=== PATIENT | male | born 1970 | race Caucasian/White ===

== ENCOUNTER → 2020-08-21 | Outpatient (CLI) | payer MEDICARE, MEDICAID ==
[~2020-08-21] MED LIST: COUM1TAB19 PO; EPIP0.3I2 IJ; FERR325T81 PO; GLUC1CAP10 PO; K-TA10TA2 PO; LATA0.0013 OU; LEVE250T5 PO; LOSA25TA14 PO; MM S100C PO; OMEP-218 PO; PRED20TA PO; SERT50TA29 PO; SYMB80INH INH; TRIA37.5 PO; TRIA37.53 PO; VENTAER IN; WARF-20 PO; XARE20TA PO
== END ==
LOC: M LABSMTC 12:55
PROVIDERS: ATTEND Anesthesiology
DX: Z01.812 Encounter for preprocedural laboratory examination (principal); Z20.828 Contact with and (suspected) exposure to other viral communicable diseases

== ENCOUNTER 2020-08-26 06:58 | Day surgery (SDC) | payer MEDICARE, MEDICAID ==
[~2020-08-26] VITALS: Ht 166.4 cm; Wt 113.9 kg
[2020-08-26] MEDS ORDERED: NS 1,000 ML IV ONE (07:00)
[2020-08-26] MEDS ORDERED: LIDOCAINE 2% 100MG/5ML SDV (FOR ANES.) As Ordered ONE (07:07)
[2020-08-26] MEDS ORDERED: propofoL 200 MG/20 ML VIAL As Ordered ONE ×2 (07:07→08:12)
--- NOTE | 2020-08-26 08:20 | ROOR ---
Patient Name: Mahad Evans Procedure Date: 08/26/2020 8:00 AM Date of : 1970 Age: 49 Room: [facility] Gender: Male Note Status: Finalized Procedure: Colonoscopy Indications: Hematochezia Providers: Rick GARLAND MD Referring MD: Sean Medrano DO Requesting Provider: Medicines: Monitored Anesthesia Care Complications: No immediate complications. Procedure: Pre-Anesthesia Assessment: - The heart rate, respiratory rate, oxygen saturations, blood pressure, adequacy of pulmonary ventilation, and response to care were monitored throughout the procedure. The Colonoscope was introduced through the anus and advanced to the terminal ileum, with identification of the appendiceal orifice and IC valve. The colonoscopy was performed without difficulty. The patient tolerated the procedure well. The quality of the bowel preparation was good. Findings: The perianal and digital rectal examinations were normal. Small Internal Hemorrhoids. The entire examined colon appeared normal on direct and retroflexion views. Impression: - Small Internal Hemorrhoids. - The entire examined colon is normal on direct and retroflexion views. - No specimens collected. Recommendation: - Resume Xarelto (rivaroxaban) at prior dose today. Refer to referring physician for further adjustment of therapy. Procedure Code(s): --- Professional --- 35586, Colonoscopy, flexible; diagnostic, including collection of specimen(s) by brushing or washing, when performed (separate procedure) Diagnosis Code(s): --- Professional --- K92.1, Melena (includes Hematochezia) CPT copyright 2019 [employer]. All rights reserved. The codes documented in this report are preliminary and upon cloth grader supervisor review may be revised to meet current compliance requirements. Rick Garland MD Rick GARLAND MD 08/26/2020 8:20:55 AM Electronically signed by Rick GARLAND MD Number of Addenda: 0 Note Initiated On: 08/26/2020 8:00 AM Estimated Blood Loss: Estimated blood loss: none.
[2020-08-26 08:40] VITALS: BP 112/66
== END 2020-08-26 08:51 | disposition home or self-care (01) ==
LOC: M OPP 06:58
PROVIDERS: ATTEND Internal Medicine Gastroenterology
DX: K92.1 Melena (principal); K64.8 Other hemorrhoids

== ENCOUNTER → 2023-11-09 | Outpatient (REF) | payer MEDICARE, MEDICAID ==
[~2023-11-09] MED LIST changes: -K-TA10TA2 PO; +LOSA25TA13 PO; -LOSA25TA14 PO; +OMEP-173 PO; -OMEP-218 PO; +POTA-165 PO; -TRIA37.53 PO; +TRIA37.577 PO
[2023-11-10 18:51] LABS: BACTERIA, URINE AUTO NEGATIVE (NEGATIVE); MUCUS, URINE SMALL (NEGATIVE); RBC, URINE AUTO 1 /HPF (0-3); SQUAMOUS EPITHELIAL CELL UR AU 1 /HPF (0-6); WBC, URINE AUTO 4 /HPF (0-3)
== END ==
LOC: M LAB REF 16:57
PROVIDERS: ATTEND Internal Medicine Nephrology
DX: R31.21 Asymptomatic microscopic hematuria (principal)